=== PATIENT | male | born 1965 | race Caucasian/White ===

== ENCOUNTER 2022-08-24 15:32 | Outpatient (CLI) | payer BC | END 2022-08-24 15:33 | disposition home or self-care (01) | LOC: CSHLAB 15:32 | PROVIDERS: ATTEND Otolaryngology Otolaryngic Allergy | DX: Z01.818 Encounter for other preprocedural examination (principal); D11.9 Benign neoplasm of major salivary gland, unspecified | CPT/HCPCS: 93005; 93010 ==

== ENCOUNTER 2022-08-31 05:47 | Day surgery (SDC) | payer BC ==
[2022-08-27 12:55] VITALS: BMI 32.5
[2022-08-31] MEDS ORDERED: Fentanyl 250 MCG/5 ML VIAL ONE (07:08)
[2022-08-31] MEDS ORDERED: Ondansetron PF 4 MG/2 ML Vial ONE (07:08)
[2022-08-31] MEDS ORDERED: Dexamethasone 20 MG/5 ML VIAL ONE (07:08)
[2022-08-31] MEDS ORDERED: PROPOFOL 20 ML ONE ×2 (07:08→09:38)
[2022-08-31] MEDS ORDERED: CEFAZOLIN 2 GM VIAL ONE (07:10)
[2022-08-31] MEDS ORDERED: Succinylcholine 200 MG/10 ml SYRINGE FS ONE (07:13)
[2022-08-31] MEDS ORDERED: Dexmedetomidine 200 MCG/2 ML VIAL ONE (07:14)
[2022-08-31] MEDS ORDERED: ePHEDrine Sulfate 50 MG/10 ML VIAL ONE (07:33)
[2022-08-31] MEDS ORDERED: Lidocaine 1% w/Epinephrine 1:100K 20 ML VIAL ONE (07:55)
[2022-08-31] MEDS ORDERED: Ketorolac Tromethamine 30 MG/ML VIAL ONE (09:22)
== END 2022-08-31 11:40 | disposition home or self-care (01) ==
LOC: CSHSDC 05:47
PROVIDERS: ATTEND Otolaryngology Otolaryngic Allergy
PROC: 0CB80ZZ Excision of Right Parotid Gland, Open Approach (ICD-10-PCS; principal; 2022-08-31)
DX: D11.0 Benign neoplasm of parotid gland (principal); F17.210 Nicotine dependence, cigarettes, uncomplicated; E78.5 Hyperlipidemia, unspecified
CPT/HCPCS: 88307; J1100; J1885; J2405; J2704; J3010